=== PATIENT | female | born 1965 | race Caucasian/White ===

== ENCOUNTER 2017-09-01 17:35 | Inpatient (IN) | payer MEDICARE, MEDICAID ==
[~2017-09-01] VITALS: Ht 162.6 cm; Wt 76.8 kg
[~2017-09-01 17:35] MED LIST: ADV250 IH; BUPR-93 PO; DIVA500T35 PO; LEVO50 PO; LORA10TA7 PO; PANT40TA25 PO; QUET300T2 PO; SIMV-260 PO; VIST50 PO; VITAD1000 PO
[2017-09-01 18:13] LABS: BASOPHILS % (AUTO) 1.1 % (0.0-2.0); EOSINOPHILS % (AUTO) 0.1 % (1.0-6.0); HEMATOCRIT 39.6 % (36-46); HEMOGLOBIN 13.6 g/dL (12.0-16.0); LYMPHOCYTES # (AUTO) 3.2 K/uL (1.0-4.8); LYMPHOCYTES % (AUTO) 36.6 % (22.0-44.0); MEAN CORPUSCULAR HEMOGLOBIN 33.3 pg (26.0-34.0); MEAN CORPUSCULAR HGB CONC 34.4 G/dL (31.0-37.0); MEAN CORPUSCULAR VOLUME 97 fL (80-100); MONOCYTES # (AUTO) 0.7 K/uL (0.1-1.0); MONOCYTES % (AUTO) 7.8 % (2.0-9.0); NEUTROPHILS # (AUTO) 4.7 K/uL (1.8-7.7); NEUTROPHILS % (AUTO) 54.4 % (40.0-70.0); PLATELET COUNT (AUTO) 249 K/uL (150-450); RED BLOOD CELL COUNT(AUTO) 4.08 MIL/uL (4.00-5.20); RED CELL DISTRIBUTION WIDTH 14.1 % (11.5-14.5)
[2017-09-01 18:27] LABS: ANION GAP 4 mmol/L (8-16); CALCIUM, TOTAL 8.9 mg/dL (8.8-10.5); CARBON DIOXIDE 29 mmol/L (22-29); CHLORIDE 100 mmol/L (98-107); CREATININE 0.91 mg/dL (0.60-1.30); GLOMERULAR FILTR. RATE CALC > 60 mL/min (>60); GLUCOSE,RANDOM 98 mg/dL (70-110); POTASSIUM 4.5 mmol/L (3.5-5.1); SODIUM SERUM 133 mmol/L (136-145); UREA NITROGEN, BLOOD 19 mg/dL (7-18)
[2017-09-01 18:33] LABS: ALANINE AMINOTRANSFERASE 14 U/L (12-78); ALBUMIN 3.3 g/dL (3.4-5.0); ALKALINE PHOSPHATASE 101 U/L (46-116); ASPARTATE AMINOTRANSFERASE 11 U/L (15-37); BILIRUBIN,TOTAL 0.2 mg/dL (0.1-1.0); TOTAL PROTEIN, SERUM 6.9 g/dL (6.4-8.2)
[2017-09-01] MEDS ORDERED: OLAN5TAB2 PO (19:26)
[2017-09-01] MEDS ORDERED: LINA145C PO (19:26)
[2017-09-01] MEDS ORDERED: FOLI1 PO (19:26)
[2017-09-01] MEDS ORDERED: SENN-175 PO (19:26)
[2017-09-01] MEDS ORDERED: DOCU100T8 PO (19:26)
[2017-09-01] MEDS ORDERED: KDUR10 PO (19:26)
[2017-09-01] MEDS ORDERED: FERR325T22 PO (19:26)
[2017-09-01] MEDS ORDERED: GABA-531 PO (19:26)
[2017-09-01] MEDS ORDERED: MONT10TA21 PO (19:26)
[2017-09-01] MEDS ORDERED: METO50 PO (19:26)
[2017-09-01] MEDS ORDERED: TRAZ150 PO (19:26)
[2017-09-01] MEDS ORDERED: FURO20 PO (19:26)
[2017-09-01 20:05] LABS: VALPROIC ACID 55 mcg/mL (50-100)
[2017-09-01] MEDS ORDERED: ZOLPIDEM TARTRATE 10 MG TABLET PO PRN (21:00)
[2017-09-01] MEDS ORDERED: DiphenhydrAMINE HCL 50 MG/ML VIAL IM ONE (21:15)
[2017-09-01] MEDS ORDERED: HALOPERIDOL LACTATE 5 MG/ML VIAL IM ONE (21:15)
[2017-09-01] MEDS ORDERED: LORazepam 2 MG/ML VIAL IM ONE (21:15)
[2017-09-02 02:23] VITALS: BP 110/62
[2017-09-02] MEDS ORDERED: BENZOCAINE/MENTHOL LOZENGE MM PRN (07:15)
[2017-09-02] MEDS ORDERED: ONDANSETRON HCL 4 MG TABLET PO PRN (07:15)
[2017-09-02] MEDS ORDERED: CloNIDine HCL 0.1 MG TABLET PO PRN (07:15)
[2017-09-02] MEDS ORDERED: MAG HYDROX/AL HYDROX/SIMETH ES 30 ML SUSPENSION UDCUP PO PRN (07:15)
[2017-09-02] MEDS ORDERED: ACETAMINOPHEN 325 MG TABLET PO PRN (07:15)
[2017-09-02] MEDS ORDERED: PETROLATUM,WHITE 71 GM JELLY TP PRN (07:15)
[2017-09-02] MEDS ORDERED: BACITRACIN 28.4 GM OINTMENT TP PRN (07:15)
[2017-09-02] MEDS ORDERED: IBUPROFEN 600 MG TABLET PO PRN (07:15)
[2017-09-02] MEDS ORDERED: LOPERAMIDE HCL 2 MG CAPSULE PO PRN (07:15)
[2017-09-02] MEDS ORDERED: ALBUTEROL SULFATE HFA 90 MCG/PUFF 8 GM INHALER IH PRN (07:15)
[2017-09-02 08:09] VITALS: BP 103/54
[2017-09-02 08:30] VITALS: BP 103/60
[2017-09-02] MEDS: OMEGA-3/DHA/EPA/FISH OIL 1,000 MG CAPSULE PO SCH (08:33)
[2017-09-02 09:00] VITALS: BP 103/60
[2017-09-02] MEDS: LORazepam 2 MG TABLET PO PRN ×2 (10:40→17:05)
[2017-09-02] MEDS ORDERED: SODIUM CHLORIDE 1 GM TABLET PO ONE (13:45)
[2017-09-02 16:00] VITALS: BP 104/62
[2017-09-02 16:13] VITALS: BP 100/62
[2017-09-02] MEDS: QUEtiapine FUMARATE 200 MG TABLET PO SCH (20:30)
[2017-09-03] MEDS ORDERED: PNEUMOCOCCAL VACCINE POLYVALENT 0.5 ML VIAL [PPSV23] IM ONE (00:30)
[2017-09-03] MEDS ORDERED: INFLUENZA VIRUS VACCINE QVS 2017-18 (3YR+)/PF 60 MCG/0.5 ML SYRINGE IM ONE (00:30)
[2017-09-03 07:21] VITALS: BP 100/63
[2017-09-03 08:13] LABS: BASOPHILS % (AUTO) 0.4 % (0.0-2.0); EOSINOPHILS % (AUTO) 0.1 % (1.0-6.0); HEMATOCRIT 37.7 % (36-46); HEMOGLOBIN 13.3 g/dL (12.0-16.0); LYMPHOCYTES # (AUTO) 2.7 K/uL (1.0-4.8); LYMPHOCYTES % (AUTO) 45.8 % (22.0-44.0); MEAN CORPUSCULAR HEMOGLOBIN 34.4 pg (26.0-34.0); MEAN CORPUSCULAR HGB CONC 35.3 G/dL (31.0-37.0); MEAN CORPUSCULAR VOLUME 98 fL (80-100); MONOCYTES # (AUTO) 0.5 K/uL (0.1-1.0); MONOCYTES % (AUTO) 9.2 % (2.0-9.0); NEUTROPHILS # (AUTO) 2.7 K/uL (1.8-7.7); NEUTROPHILS % (AUTO) 44.5 % (40.0-70.0); PLATELET COUNT (AUTO) 216 K/uL (150-450); RED BLOOD CELL COUNT(AUTO) 3.86 MIL/uL (4.00-5.20); RED CELL DISTRIBUTION WIDTH 14.3 % (11.5-14.5)
[2017-09-03 08:34] LABS: HEMOGLOBIN A1C 5.3 % (4.5-6.2)
[2017-09-03 08:40] VITALS: BP 102/60
[2017-09-03 08:43] LABS: FREE T4 (FREE THYROXINE) 0.67 ng/dL (0.76-1.46); THYROID STIMULATING HORMONE 19.21 uIU/mL (0.36-3.74)
[2017-09-03] MEDS: DIVALPROEX SODIUM 500 MG ER TABLET PO SCH ×2 (09:06→16:20)
[2017-09-03] MEDS: OMEGA-3/DHA/EPA/FISH OIL 1,000 MG CAPSULE PO SCH (09:07)
[2017-09-03] MEDS: BuPROPion HCL XL 150 MG ER TABLET PO SCH (09:07)
[2017-09-03] MEDS: HydrOXYzine PAMOATE 25 MG CAPSULE PO SCH ×3 (09:07→16:20)
[2017-09-03] MEDS: LORazepam 2 MG TABLET PO PRN ×2 (10:50→16:49)
[2017-09-03] MEDS: ESCITALOPRAM OXALATE 10 MG TABLET PO SCH (14:24)
[2017-09-03 16:06] VITALS: BP 129/68
[2017-09-03] MEDS: QUEtiapine FUMARATE 200 MG TABLET PO SCH (20:12)
[2017-09-04 07:08] VITALS: BP 110/64
[2017-09-04] MEDS: LEVOTHYROXINE SODIUM 50 MCG TABLET PO SCH (07:15)
[2017-09-04 08:25] VITALS: BP 100/51
[2017-09-04] MEDS ORDERED: LACTULOSE 20 GM/30 ML SOLUTION UDCUP PO ONE (08:45)
[2017-09-04] MEDS: OMEGA-3/DHA/EPA/FISH OIL 1,000 MG CAPSULE PO SCH (09:17)
[2017-09-04] MEDS: ESCITALOPRAM OXALATE 10 MG TABLET PO SCH (09:17)
[2017-09-04] MEDS: HydrOXYzine PAMOATE 25 MG CAPSULE PO SCH ×3 (09:17→17:57)
[2017-09-04] MEDS: BuPROPion HCL XL 150 MG ER TABLET PO SCH (09:18)
[2017-09-04] MEDS: DIVALPROEX SODIUM 500 MG ER TABLET PO SCH ×2 (09:18→17:57)
[2017-09-04] MEDS: LORazepam 2 MG TABLET PO PRN (10:12)
[2017-09-04 16:00] VITALS: BP 132/74
[2017-09-04] MEDS ORDERED: HALOPERIDOL LACTATE 5 MG/ML VIAL IM ONE (16:45)
[2017-09-04] MEDS ORDERED: LORazepam 2 MG/ML VIAL IM ONE (16:45)
[2017-09-04] MEDS ORDERED: DiphenhydrAMINE HCL 50 MG/ML VIAL IM ONE (16:45)
[2017-09-04 17:30] VITALS: BP 123/70
[2017-09-04] MEDS: QUEtiapine FUMARATE 200 MG TABLET PO SCH (20:41)
[2017-09-05] MEDS: LEVOTHYROXINE SODIUM 50 MCG TABLET PO SCH (06:46)
[2017-09-05 06:52] VITALS: BP 111/78
[2017-09-05 08:04] LABS: ALANINE AMINOTRANSFERASE 12 U/L (12-78); ALKALINE PHOSPHATASE 88 U/L (46-116); ANION GAP 6 mmol/L (8-16); ASPARTATE AMINOTRANSFERASE 10 U/L (15-37); BILIRUBIN,TOTAL 0.2 mg/dL (0.1-1.0); CALCIUM, TOTAL 8.9 mg/dL (8.8-10.5); CARBON DIOXIDE 28 mmol/L (22-29); CHLORIDE 104 mmol/L (98-107); CREATININE 0.86 mg/dL (0.60-1.30); GLOMERULAR FILTR. RATE CALC > 60 mL/min (>60); GLUCOSE,RANDOM 71 mg/dL (70-110); POTASSIUM 5.2 mmol/L (3.5-5.1); SODIUM SERUM 138 mmol/L (136-145); TOTAL PROTEIN, SERUM 6.5 g/dL (6.4-8.2); UREA NITROGEN, BLOOD 24 mg/dL (7-18); VALPROIC ACID 81 mcg/mL (50-100)
[2017-09-05 08:18] VITALS: BP 133/75
[2017-09-05] MEDS: DIVALPROEX SODIUM 500 MG ER TABLET PO SCH ×2 (08:44→17:29)
[2017-09-05] MEDS: ESCITALOPRAM OXALATE 10 MG TABLET PO SCH (08:44)
[2017-09-05] MEDS: BuPROPion HCL XL 150 MG ER TABLET PO SCH (08:45)
[2017-09-05] MEDS: OMEGA-3/DHA/EPA/FISH OIL 1,000 MG CAPSULE PO SCH (08:45)
[2017-09-05] MEDS: HydrOXYzine PAMOATE 25 MG CAPSULE PO SCH ×3 (08:45→17:29)
[2017-09-05] MEDS: LORazepam 2 MG TABLET PO PRN ×2 (09:13→16:35)
[2017-09-05 16:00] VITALS: BP 130/82
[2017-09-05] MEDS: HALOPERIDOL 5 MG TABLET PO PRN (16:35)
[2017-09-05] MEDS: POLYETHYLENE GLYCOL 3350 17 GM PACKET PO PRN (17:59)
[2017-09-05] MEDS: QUEtiapine FUMARATE 200 MG TABLET PO SCH (20:37)
[2017-09-06 05:37] VITALS: BP 114/83
[2017-09-06] MEDS: LEVOTHYROXINE SODIUM 50 MCG TABLET PO SCH (06:10)
[2017-09-06 08:22] VITALS: BP 116/67
[2017-09-06 08:46] LABS: HEMATOCRIT 38.1 % (36-46); MEAN CORPUSCULAR HEMOGLOBIN 33.3 pg (26.0-34.0); MEAN CORPUSCULAR VOLUME 98 fL (80-100); PLATELET COUNT (AUTO) 207 K/uL (150-450); RED BLOOD CELL COUNT(AUTO) 3.89 MIL/uL (4.00-5.20)
[2017-09-06] MEDS: ESCITALOPRAM OXALATE 10 MG TABLET PO SCH (09:16)
[2017-09-06] MEDS: POLYETHYLENE GLYCOL 3350 17 GM PACKET PO PRN (09:17)
[2017-09-06] MEDS: HydrOXYzine PAMOATE 25 MG CAPSULE PO SCH ×3 (09:17→17:15)
[2017-09-06] MEDS: OMEGA-3/DHA/EPA/FISH OIL 1,000 MG CAPSULE PO SCH (09:17)
[2017-09-06] MEDS: DIVALPROEX SODIUM 500 MG ER TABLET PO SCH ×2 (09:17→17:15)
[2017-09-06] MEDS: BuPROPion HCL XL 150 MG ER TABLET PO SCH (09:17)
[2017-09-06] MEDS: LORazepam 2 MG TABLET PO PRN ×2 (09:21→16:32)
[2017-09-06 09:26] LABS: ANION GAP 9 mmol/L (8-16); CALCIUM, TOTAL 8.8 mg/dL (8.8-10.5); CARBON DIOXIDE 28 mmol/L (22-29); CHLORIDE 101 mmol/L (98-107); CREATININE 0.74 mg/dL (0.60-1.30); GLOMERULAR FILTR. RATE CALC > 60 mL/min (>60); GLUCOSE,RANDOM 69 mg/dL (70-110); PHOSPHORUS 4.4 mg/dL (2.5-4.9); POTASSIUM 4.6 mmol/L (3.5-5.1); SODIUM SERUM 138 mmol/L (136-145); UREA NITROGEN, BLOOD 28 mg/dL (7-18)
[2017-09-06 10:43] LABS: EOSINOPHILS % (MANUAL) 1 % (1-6); LYMPHOCYTES % (MANUAL) 58 % (22-44); MONOCYTES % (MANUAL) 4 % (2-9); SEGMENTED NEUTROPHILS % 37 % (40-70)
[2017-09-06 16:14] VITALS: BP 110/71
[2017-09-06] MEDS: HALOPERIDOL 5 MG TABLET PO PRN (16:32)
[2017-09-06] MEDS: QUEtiapine FUMARATE 200 MG TABLET PO SCH (20:39)
[2017-09-06] MEDS: MAGNESIUM HYDROXIDE SUSPENSION 30 ML UDCUP PO PRN (20:39)
[2017-09-07 06:16] VITALS: BP 106/70
[2017-09-07] MEDS: LEVOTHYROXINE SODIUM 50 MCG TABLET PO SCH (06:38)
[2017-09-07 08:38] VITALS: BP 105/72
[2017-09-07] MEDS: DIVALPROEX SODIUM 500 MG ER TABLET PO SCH ×2 (09:05→16:21)
[2017-09-07] MEDS: HydrOXYzine PAMOATE 25 MG CAPSULE PO SCH ×3 (09:05→16:20)
[2017-09-07] MEDS: FUROSEMIDE 20 MG TABLET PO SCH ×2 (09:05→16:20)
[2017-09-07] MEDS: ESCITALOPRAM OXALATE 10 MG TABLET PO SCH (09:05)
[2017-09-07] MEDS: BuPROPion HCL XL 150 MG ER TABLET PO SCH (09:06)
[2017-09-07] MEDS: POTASSIUM CHLORIDE 20 MEQ ER TABLET PO SCH ×2 (09:06→16:20)
[2017-09-07] MEDS: MONTELUKAST SODIUM 10 MG TABLET PO SCH (09:06)
[2017-09-07] MEDS: METOPROLOL TARTRATE 50 MG TABLET PO SCH (09:06)
[2017-09-07] MEDS: OMEGA-3/DHA/EPA/FISH OIL 1,000 MG CAPSULE PO SCH (09:07)
[2017-09-07] MEDS: POLYETHYLENE GLYCOL 3350 17 GM PACKET PO PRN (09:08)
[2017-09-07] MEDS: MAGNESIUM HYDROXIDE SUSPENSION 30 ML UDCUP PO PRN (10:14)
[2017-09-07] MEDS: LORazepam 2 MG TABLET PO PRN ×2 (10:14→16:21)
[2017-09-07 16:20] VITALS: BP 122/76
[2017-09-07] MEDS: QUEtiapine FUMARATE 200 MG TABLET PO SCH (20:25)
[2017-09-07] MEDS ORDERED: SIMVASTATIN 20 MG TABLET PO SCH (21:00)
[2017-09-08] MEDS: LEVOTHYROXINE SODIUM 50 MCG TABLET PO SCH (06:32)
[2017-09-08 06:39] VITALS: BP 132/60
[2017-09-08 08:16] LABS: HEMATOCRIT 36.4 % (36-46); HEMOGLOBIN 12.7 g/dL (12.0-16.0); MEAN CORPUSCULAR HEMOGLOBIN 34.4 pg (26.0-34.0); MEAN CORPUSCULAR HGB CONC 34.8 G/dL (31.0-37.0); MEAN CORPUSCULAR VOLUME 99 fL (80-100); PLATELET COUNT (AUTO) 179 K/uL (150-450); RED BLOOD CELL COUNT(AUTO) 3.68 MIL/uL (4.00-5.20); RED CELL DISTRIBUTION WIDTH 13.8 % (11.5-14.5)
[2017-09-08] MEDS: MONTELUKAST SODIUM 10 MG TABLET PO SCH (08:21)
[2017-09-08] MEDS: METOPROLOL TARTRATE 50 MG TABLET PO SCH (08:21)
[2017-09-08] MEDS: ESCITALOPRAM OXALATE 10 MG TABLET PO SCH (08:22)
[2017-09-08] MEDS: OMEGA-3/DHA/EPA/FISH OIL 1,000 MG CAPSULE PO SCH (08:22)
[2017-09-08] MEDS: BuPROPion HCL XL 150 MG ER TABLET PO SCH (08:22)
[2017-09-08] MEDS: LORazepam 2 MG TABLET PO PRN (08:22)
[2017-09-08] MEDS: HydrOXYzine PAMOATE 25 MG CAPSULE PO SCH ×3 (08:22→17:18)
[2017-09-08] MEDS: FUROSEMIDE 20 MG TABLET PO SCH ×2 (08:22→17:18)
[2017-09-08] MEDS: POTASSIUM CHLORIDE 20 MEQ ER TABLET PO SCH ×2 (08:22→17:18)
[2017-09-08] MEDS: DIVALPROEX SODIUM 500 MG ER TABLET PO SCH ×2 (08:22→17:18)
[2017-09-08 08:35] LABS: ANION GAP 7 mmol/L (8-16); CALCIUM, TOTAL 8.3 mg/dL (8.8-10.5); CARBON DIOXIDE 29 mmol/L (22-29); CHLORIDE 100 mmol/L (98-107); GLOMERULAR FILTR. RATE CALC > 60 mL/min (>60); GLUCOSE,RANDOM 86 mg/dL (70-110); PHOSPHORUS 4.3 mg/dL (2.5-4.9); POTASSIUM 4.6 mmol/L (3.5-5.1); SODIUM SERUM 136 mmol/L (136-145); UREA NITROGEN, BLOOD 35 mg/dL (7-18)
[2017-09-08 10:39] LABS: LYMPHOCYTES % (MANUAL) 50 % (22-44); MONOCYTES % (MANUAL) 8 % (2-9); SEGMENTED NEUTROPHILS % 42 % (40-70)
[2017-09-08] MEDS ORDERED: LEVO50TA11 PO (12:54)
[2017-09-08] MEDS ORDERED: OMEG-135 PO (12:54)
[2017-09-08] MEDS ORDERED: BUPR-93 PO (12:57)
[2017-09-08] MEDS ORDERED: DIVA500T52 PO (12:57)
[2017-09-08] MEDS ORDERED: ESCI10TA PO (12:57)
[2017-09-08] MEDS ORDERED: QUET300T2 PO (12:57)
[2017-09-08] MEDS ORDERED: HYDR-4031 PO (12:59)
[2017-09-08 16:07] VITALS: BP 105/65
== END 2017-09-08 19:00 | disposition home or self-care (01) | DRG 885 ==
LOC: EMS 17:38 → B3A 22:00 → B2S 09-08 10:45 → B3A 09-08 10:46
PROVIDERS: ADMIT Psychiatry & Neurology Child & Adolescent Psychiatry; ATTEND Psychiatry & Neurology Child & Adolescent Psychiatry
PROC: 3E0234Z Introduction of Serum, Toxoid and Vaccine into Muscle, Percutaneous Approach (ICD-10-PCS; principal; 2017-09-03)
DX: F25.1 Schizoaffective disorder, depressive type (principal); R45.851 Suicidal ideations; E87.1 Hypo-osmolality and hyponatremia; F23 Brief psychotic disorder; E87.5 Hyperkalemia; B35.3 Tinea pedis; F17.210 Nicotine dependence, cigarettes, uncomplicated; E03.9 Hypothyroidism, unspecified; E55.9 Vitamin D deficiency, unspecified; G47.00 Insomnia, unspecified; J44.9 Chronic obstructive pulmonary disease, unspecified; F60.3 Borderline personality disorder; F41.9 Anxiety disorder, unspecified; K21.9 Gastro-esophageal reflux disease without esophagitis; K59.00 Constipation, unspecified; Z80.1 Family history of malignant neoplasm of trachea, bronchus and lung; Z81.8 Family history of other mental and behavioral disorders; Z91.5 Personal history of self-harm; Z88.8 Allergy status to other drugs, medicaments and biological substances; Z79.899 Other long term (current) drug therapy; Z23 Encounter for immunization
CPT/HCPCS: 83036; 83735; 84100; 84439; 84443; 85007; 90471; 96372; 99285; G0480; J1200; J1630; J2060

== ENCOUNTER 2023-10-21 10:09 | Emergency (ER) | payer MEDICARE, MEDICAID ==
[~2023-10-21] VITALS: Ht 162.6 cm; Wt 92.4 kg
[~2023-10-21 10:09] MED LIST changes: -ADV250 IH; +BUPR-50 PO; -BUPR-93 PO; +BUSP5TAB20 PO; +DIVA-112 PO; -DIVA500T35 PO; +ESCI20TA87 PO; +FAMO20 PO; +IPRAHFA IH; +LEVO25TA9 PO; -LEVO50 PO; +LITH300C3 PO; -LORA10TA7 PO; +MONT-35 PO; +OLAN10TA74 PO; -PANT40TA25 PO; +POLY17PO52 PO; +PRED-549 PO; -QUET300T2 PO; +SIMV-259 PO; -SIMV-260 PO; +SULF-261 PO; -VIST50 PO; -VITAD1000 PO
[2023-10-21 10:36] VITALS: TEMP 98.1
[2023-10-21 11:31] LABS: BASOPHILS % (AUTO) 0.4 % (0.0-2.0); EOSINOPHILS % (AUTO) 0.8 % (1.0-6.0); HEMATOCRIT 37.5 % (36-46); HEMOGLOBIN 12.4 g/dL (12.0-16.0); LYMPHOCYTES # (AUTO) 0.8 K/uL (1.0-4.8); LYMPHOCYTES % (AUTO) 7.8 % (22.0-44.0); MEAN CORPUSCULAR HGB CONC 33.1 G/dL (31.0-37.0); MEAN CORPUSCULAR VOLUME 91 fL (80-100); MONOCYTES # (AUTO) 0.2 K/uL (0.1-1.0); MONOCYTES % (AUTO) 2.5 % (2.0-9.0); NEUTROPHILS # (AUTO) 8.5 K/uL (1.8-7.7); PLATELET COUNT (AUTO) 272 K/uL (150-450); RED BLOOD CELL COUNT(AUTO) 4.13 MIL/uL (4.00-5.20); WHITE BLOOD COUNT (AUTO) 9.6 K/uL (4.5-11.0)
[2023-10-21 11:35] LABS: NEUTROPHILS % (AUTO) 88.5 % (40.0-70.0)
[2023-10-21] MEDS: ACETAMINOPHEN 500 MG TABLET PO ONE (11:40)
[2023-10-21 11:41] LABS: ANION GAP 6 mmol/L (8-16); CALCIUM, TOTAL 8.9 mg/dL (8.8-10.5); CARBON DIOXIDE 30 mmol/L (22-29); CHLORIDE 99 mmol/L (98-107); CREATININE 0.64 mg/dL (0.60-1.30); GLOMERULAR FILTR. RATE CALC > 60 mL/min (>60); GLUCOSE,RANDOM 118 mg/dL (70-110); POTASSIUM 4.8 mmol/L (3.5-5.1); SODIUM SERUM 135 mmol/L (136-145); UREA NITROGEN, BLOOD 10 mg/dL (7-18)
[2023-10-21 11:50] LABS: TROPONIN I-HIGH SENSITIVITY 5 ng/L (<51)
[2023-10-21] MEDS: LORazepam 2 MG TABLET PO ONE (12:15)
[2023-10-21 13:08] VITALS: BP 128/79; PULSE 86; RESP 19
== END 2023-10-21 13:33 ==
LOC: EMS 10:09
DX: F41.9 Anxiety disorder, unspecified (principal); F31.9 Bipolar disorder, unspecified; F20.9 Schizophrenia, unspecified; K21.9 Gastro-esophageal reflux disease without esophagitis; J44.9 Chronic obstructive pulmonary disease, unspecified; F17.210 Nicotine dependence, cigarettes, uncomplicated; Z88.8 Allergy status to other drugs, medicaments and biological substances
CPT/HCPCS: 71045; 80048; 84484; 85025; 93005; 99285; 36415-L1; 36415-TC